=== PATIENT | male | born 1970 | race Asian ===

== ENCOUNTER 2025-05-19 06:57 | Emergency (ER) | payer SELFPAY ==
[~2025-05-19] VITALS: Ht 162.6 cm; Wt 78.4 kg
[2025-05-19 07:01] VITALS: TEMP 98
[2025-05-19 07:15] LABS: PLATELET COUNT (AUTO) 332 K/uL (150-450); RED BLOOD CELL COUNT(AUTO) 4.52 MIL/uL (4.50-5.90); RED CELL DISTRIBUTION WIDTH 13.8 % (11.5-14.5); WHITE BLOOD COUNT (AUTO) 8.0 K/uL (4.5-11.0)
[2025-05-19 07:31] LABS: TROPONIN I-HIGH SENSITIVITY 9 ng/L (<76)
[2025-05-19 07:32] LABS: CALCIUM, TOTAL 8.5 mg/dL (8.8-10.5); CREATININE 1.09 mg/dL (0.60-1.30); GLOMERULAR FILTR. RATE CALC > 60 mL/min (>60); GLUCOSE,RANDOM 102 mg/dL (70-110); SODIUM SERUM 140 mmol/L (136-145); UREA NITROGEN, BLOOD 16 mg/dL (7-18)
[2025-05-19 07:37] LABS: ASPARTATE AMINOTRANSFERASE 23 U/L (15-37); CHOL/HDL RATIO 3.0 (4.2-7.3); LDL CHOL (CALC.) 120 mg/dL (0-130); TOTAL PROTEIN, SERUM 7.4 g/dL (6.4-8.2)
[2025-05-19] MEDS: ASPIRIN 325 MG TABLET PO ONE (08:15)
[2025-05-19 08:45] VITALS: BP 140/85; PULSE 85; RESP 16; O2SAT 100
== END 2025-05-19 09:03 | disposition short-term general hospital (02) ==
LOC: EMS 06:59
DX: I63.9 Cerebral infarction, unspecified (principal); R29.810 Facial weakness
CPT/HCPCS: 70496; 70498; 71045; 80053; 80061; 82948; 82962; 83036; 84484; 85025; 85610; 85730; 86850; 86900; 86901; 93005; 99291; 36415-L1; 36415-TC; 70450; 70450-TC